=== PATIENT | male | born 1995 | race Two or more races ===

== ENCOUNTER → 2024-04-26 | Outpatient (CLI) | payer BC, SELFPAY ==
[2024-04-26 11:47] LABS: Basophils % (Auto) 1 % (0-2.5); Eosinophils # (Auto) 0.1 Thou/mm3 (0.0-0.5); Eosinophils % (Auto) 2 % (0-10); Hematocrit 41.3 % (41.0-53.0); Hemoglobin 14.4 g/dL (13.5-16.0); Immature Granulocytes % (Auto) 0 % (0-0); Lymphocytes # (Auto) 2.5 Thou/mm3 (1.0-4.8); Lymphocytes % (Auto) 57 % (10-50); Mean Corpuscular HGB Conc 34.9 g/dl (31.0-37.0); Mean Corpuscular Hemoglobin 29.3 pg (25.0-35.0); Mean Corpuscular Volume 84 fL (80-100); Monocytes # (Auto) 0.4 Thou/mm3 (0.0-0.8); Monocytes % (Auto) 9 % (0-12); Neutrophils # (Auto) 1.4 Thou/mm3 (1.8-7.7); Neutrophils % (Auto) 32 % (37-80); Nucleated Red Blood Cell % 0 /100 WBC (0); Platelet Count 235 Thou/mm3 (140-440); Red Blood Count 4.91 Miln/mm3 (4.50-5.90); White Blood Count 4.3 Thou/mm3 (3.8-10.6)
[2024-04-26 12:08] LABS: Alanine Aminotransferase 33 U/L (10-49); Albumin, Serum 4.6 gm/dL (3.5-5.0); Alkaline Phosphatase 72 U/L (46-116); Anion Gap 7 (7-16); Aspartate Amino Transferase 25 U/L (0-34); BUN/Creatinine Ratio 29 Ratio (12-20); Bilirubin,Total 0.5 mg/dL (0.3-1.2); Blood Urea Nitrogen 26 mg/dL (9-23); Calcium 9.9 mg/dL (8.3-10.6); Calcium (Corrected) 9.9 mg/dL (8.5-10.1); Carbon Dioxide 27.4 mMol/L (20.0-31.0); Cardiac Risk Estimate 3.9 RATIO (4.0-6.7); Chloride 107 mMol/L (98-107); Cholesterol 178 mg/dL (132-200); Creatinine (Component) 0.9 mg/dL (0.6-1.3); Globulin 2.3 gm/dL (2.3-3.5); Glucose 99 mg/dL (74-106); HDL Cholesterol 46 mg/dL (40-60); LDL Cholesterol,Calculated 124 mg/dL (0-130); Osmolality,Calculated 285 (275-295); Potassium 4.7 mMol/L (3.4-5.1); Sodium 141 mMol/L (136-145); Total Protein 6.9 gm/dL (5.7-8.2); Triglycerides 38 mg/dL (30-150); eGFR > 60 See Note
== END | disposition home or self-care (01) ==
PROVIDERS: PCP Internal Medicine; Referring Provider Internal Medicine; Visit Provider Internal Medicine
DX: Z00.00 Encounter for general adult medical examination without abnormal findings (principal)
CPT/HCPCS: 36415; 80053; 80061; 85025